=== PATIENT | male | born 1945 | race Caucasian/White ===

== ENCOUNTER 2016-12-19 11:41 | Emergency (ER) | END 2016-12-19 16:39 | disposition EXP | DX: I46.9 Cardiac arrest, cause unspecified (principal); D64.9 Anemia, unspecified; J44.9 Chronic obstructive pulmonary disease, unspecified; I10 Essential (primary) hypertension | CPT/HCPCS: 36430; 86850; 86900; 86901; 86920; 99291; P9016 ==